=== PATIENT | male | born 1935 | race Two or more races ===

== ENCOUNTER 2024-09-29 13:39 | Inpatient (IN) | payer OTHER ==
[~2024-09-29] VITALS: Ht 170.2 cm; Wt 139.0 kg
--- NOTE | 2024-09-29 14:23 | DVHHP2 ---
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 [facility] 09/29/24 Verified 24 Hours 14:18 Emergency Dysrhythmia [facility] 09/29/24 Verified Protocol 14:18 Rhythm Strips Once [facility] 09/29/24 Verified Every Shift 14:18 Oxygen By Nasal RT 09/29/24 Verified Cannula 14:18 Npo (Nothing By DIET 09/29/24 Verified Mouth) Diet Dinner Tamsulosin PHA 09/29/24 Verified Hydrochloride (Flomax) 18:00 Finasteride Tablet PHA 09/30/24 Verified (Proscar Tablet) 10:00 Complete Blood Count LAB 09/29/24 Verified 14:18 Comprehensive LAB 09/29/24 Verified Metabolic Panel 14:18 PTPTT LAB 09/29/24 Verified 14:18 Urinalysis LAB 09/29/24 Uncollected 14:18 Urine Bacterial RICH 09/29/24 Verified Culture 14:18 Ekg On Admit [facility] 09/29/24 Verified 14:18 Basic Metabolic Panel LAB 09/30/24 Verified 06:00 Complete Blood Count LAB 09/30/24 Verified 06:00 Chest Portable XY 09/29/24 Verified 14:18 Acetaminophen Tablet PHA 09/29/24 Verified (Tylenol Tablet) 14:30 Ondansetron Hcl PHA 09/29/24 Verified (Zofran) 14:30 Date of Service: September 29, 2024 Billing Provider: KAREN KENDALL MD Common Visit Codes: [id number] INP/OBS CARE (HIGH) Secondary Visit Codes: [id number] CARE PLAN 30 MINUTES KAERN KENDALL MD September 29, 2024 14:23
[2024-09-29] MEDS ORDERED: MORPHINE SULFATE INJ 2 MG/ml SYRG IV PRN (14:30)
[2024-09-29] MEDS ORDERED: NITROGLYCERIN 0.4 MG SL TAB SL PRN (14:30)
[2024-09-29] MEDS ORDERED: ONDANSETRON HCL 4 MG/2 ML VIAL IV PRN (14:30)
--- NOTE | 2024-09-29 14:52 | DVHHP ---
ADMIT DATE: 09/29/2024 HISTORY OF PRESENT ILLNESS: The patient is an 88-year-old gentleman who came in with a history of hematuria that began for the last 1 day. The patient has had recent issues with BPH and now has indwelling Bui. The patient also has had issues with constipation along with secondary anal fissure. The patient has been on a bowel regimen and more recently on GoLYTELY. The patient denies at this point any abdominal pain. No history of any nausea or vomiting. No history of fevers. No chest pain or shortness of breath. REVIEW OF SYSTEMS: Review of rest of systems, otherwise currently negative. PAST MEDICAL HISTORY: Significant for hypertension, BPH, and hyperlipidemia. MEDICATIONS: He takes losartan, finasteride, Flomax, and atorvastatin. ALLERGIES: No known drug allergies. SOCIAL HISTORY: Denies smoking or alcohol. Lives at home with his . FAMILY HISTORY: Negative. PHYSICAL EXAMINATION: GENERAL: The patient is awake and alert. VITAL SIGNS: Temperature of 97.7, pulse 67 per minute, blood pressure 169/70. SHEENT: Unremarkable. NECK: There is no JVD. There is trace pedal edema. LUNGS: Equal bilaterally. No added sounds. CARDIOVASCULAR: S1 and S2 are regular. No murmurs. ABDOMEN: Soft. There is no organomegaly. NEUROLOGIC: Nonfocal. MUSCULOSKELETAL: Normal. : There is a Bui catheter in place. ASSESSMENT AND PLAN: * Hematuria for which an UA and urine culture will be obtained. The patient will be seen in Urology consult by Dr. Jimenez. * BPH for which he will continue on finasteride and Flomax. * Hypertension, for which he will be placed on losartan. * Hyperlipidemia. * History of constipation. * Advanced care planning. The patient is a full code. Time spent was 18 minutes. MD REZA Koch/BOB TID: [id number] RECEIPT: [id number]
[2024-09-29 14:55] LABS: Basophils # (auto) 0 10 ^3/uL (0-0.2); Basophils % (auto) 0.4 % (0.0-2.0); Eosinophils # (auto) 0.1 10 ^3/uL (0-0.8); Eosinophils % (auto) 0.5 % (0.0-7.0); Hematocrit 38.4 % (41.0-53.0); Hemoglobin 12.9 g/dL (13.5-17.5); Lymphocytes # (auto) 0.8 10 ^3/uL (0.4-5.4); Lymphocytes % (auto) 7.1 % (10.0-50.0); Mean Corpuscular Hemoglobin 30.1 pg (28.0-32.0); Mean Corpuscular Hgb Conc. 33.6 g/dL (32.0-36.0); Mean Corpuscular Volume 89.6 fL (80.0-100.0); Monocytes # (auto) 0.8 10 ^3/uL (0-1.3); Monocytes % (auto) 7.3 % (0.0-12.0); Neutrophils # (auto) 9.8 10 ^3/uL (1.6-8.6); Neutrophils % (auto) 84.7 % (37.0-80.0); Platelet Count (auto) 292 10^3/uL (140-450); Red Blood Cells 4.29 10^6/uL (4.5-5.90); Red Cell Distribution Width 13.8 % (11.8-14.3); White Blood Cell 11.6 10^3/uL (4.4-10.8)
[2024-09-29 15:02] VITALS: BP 169/72; PULSE 84; RESP 18; TEMP 97.7; O2SAT 96
--- NOTE | 2024-09-29 15:06 | DVHINCON2 ---
Date of service: September 29, 2024 Referring Physician Hospitalist Reason for Consultation Gross hematuria Urinary retention BPH History of Present Illness Patient in AUR x one week. He has failed one voiding trial and remains on Flomax and Proscar. Cystoscopy showed bilobar hyperplasia. Due to constipation issues, Golytely was given to him by GI Medicine. He noted gross hematuria x one day. He is admitted for surgical management. Past Medical History BPH Past Surgical History Cystoscopy Social History Nonsmoker Current Medications Current Medications Medications (Trade) Dose Ordered Sig/Patrick Route PRN Reason Start Time Stop Time Status Last Admin Nitroglycerin (Ntrostat Sublingual) 0.4 mg Q5MINP PRN SL FOR CHEST PAIN 09/29/24 14:30 UNV Morphine Sulfate 2 mg Q30M PRN IV FOR CHEST PAIN 09/29/24 14:30 UNV Tamsulosin HCl (Flomax) 0.4 mg QPM PO 09/29/24 18:00 UNV Finasteride (Proscar Tablet) 5 mg DAILY PO 09/30/24 10:00 UNV Acetaminophen (Tylenol Tablet) 650 mg Q6HP PRN PO MILD PAIN (1-3 PAIN SCALE) 09/29/24 14:30 UNV Ondansetron HCl (Zofran) 4 mg Q6HPRN PRN IV NAUSEA / VOMITING 09/29/24 14:30 UNV Losartan Potassium (Cozaar Tablet) 50 mg DAILY PO 09/30/24 10:00 UNV Review of Systems AUR Constipation- resolved Physical Exam NAD Abd: soft : dumont in place with hematuria noted Labs/Diagnostic Data Labs Test 09/29/24 14:45 Range/Units White Blood Count 11.6 H 4.4-10.8 10^3/uL Red Blood Count 4.29 L 4.5-5.90 10^6/uL Hemoglobin 12.9 L 13.5-17.5 g/dL Hematocrit 38.4 L 41.0-53.0 % Mean Corpuscular Volume 89.6 80.0-100.0 fL Mean Corpuscular Hemoglobin 30.1 28.0-32.0 pg Mean Corpuscular Hemoglobin Concent 33.6 32.0-36.0 g/dL Red Cell Distribution Width 13.8 11.8-14.3 % Platelet Count 292 140-450 10^3/uL Mean Platelet Volume 7.4 6.9-10.8 fL Neutrophils (%) (Auto) 84.7 H 37.0-80.0 % Lymphocytes (%) (Auto) 7.1 L 10.0-50.0 % Monocytes (%) (Auto) 7.3 0.0-12.0 % Eosinophils (%) (Auto) 0.5 0.0-7.0 % Basophils (%) (Auto) 0.4 0.0-2.0 % Neutrophils # (Auto) 9.8 H 1.6-8.6 10 ^3/uL Lymphocytes # (Auto) 0.8 0.4-5.4 10 ^3/uL Monocytes # (Auto) 0.8 0-1.3 10 ^3/uL Eosinophils # (Auto) 0.1 0-0.8 10 ^3/uL Basophils # (Auto) 0 0-0.2 10 ^3/uL Nucleated Red Blood Cells 0.0 % Assessment BPH Urinary retention Gross hematuria Plan/Recommendation Cystoscopy with possible TURP, possible Urolift placement Plan discussed with: Patient, Daughter, Son, Other DONNY GUDINO MD September 29, 2024 15:06
[2024-09-29 15:09] LABS: INR 1.08 (0.9-1.15); Partial Thromboplastin Time 28.8 SEC (24.5-34.5); Prothrombin Time 11.4 sec (9.3-11.8)
[2024-09-29 15:11] LABS: Alanine Aminotransferase 29 U/L (7-40); Albumin 4.2 g/dL (3.2-4.8); Alkaline Phosphatase 73 U/L (46-116); Anion Gap 8 (5-15); Aspartate Aminotransferase 38 U/L (13-40); BUN/Creatinine Ratio 11.7 (10.0-20.0); Blood Urea Nitrogen 9 mg/dL (9-23); Calcium 9.1 mg/dL (8.7-10.4); Carbon Dioxide 28 mmol/L (20-31); Chloride 104 mmol/L (98-107); Glucose 102 mg/dL (74-106); Potassium 3.9 mmol/L (3.5-5.1); Sodium 140 mmol/L (136-145); Total Protein 6.4 g/dL (5.7-8.2)
[2024-09-29 15:12] LABS: Bilirubin, Total 0.6 mg/dL (0.2-1.0)
[2024-09-29] MEDS ORDERED: fentaNYL CITRATE 100 MCG/2 ML VL ONE ×2 (15:36→16:27)
[2024-09-29] MEDS ORDERED: PROPOFOL 10 MG/ML 20 ML IV ONE (15:36)
--- NOTE | 2024-09-29 15:50 | DVH ---
INDICATION: HTN TECHNIQUE: Frontal view of the chest. COMPARISON: None FINDINGS: Findings. The heart and mediastinal contours are grossly unremarkable. There is no evidence of pleur al disease. The lungs are clear. There is atelectasis and fibrosis seen in the left upper lung The bony structures of the chest are intact without fracture. IMPRESSION: 1. No evidence of acute disease.
[2024-09-29 16:12] LABS: Urine Bacteria None Seen /hpf (None Seen)
[2024-09-29 16:17] LABS: Urine Blood 2+ /uL (Negative); Urine Clarity Clear (Clear); Urine Color Colorless (Yellow); Urine Protein, UAD Negative (Negative); Urine Specific Gravity 1.005 (1.001-1.035); Urine Squamous Epithelial Cell FEW /hpf (<5); Urine Urobilinogen Normal (Negative); Urine WBC 62 /HPF (0-3)
[2024-09-29] MEDS ORDERED: ONDANSETRON HCL 4 MG/2 ML VIAL ONE (16:23)
[2024-09-29] MEDS ORDERED: ePHEDrine SULFATE 50 MG/ML AMP ONE (16:25)
[2024-09-29] MEDS: LIDOCAINE 2% JELLY 11ml (GLYDO) ONE (16:25)
[2024-09-29 17:01] VITALS: PULSE 77; RESP 17; O2SAT 96
[2024-09-29] MEDS: ONDANSETRON HCL 4 MG/2 ML VIAL IV ONE (17:15)
[2024-09-29] MEDS: HYDROmorphone HCL 2 MG/ML VL/or syr IV PRN (17:31)
[2024-09-29] MEDS: ACETAMINOPHEN IV 1000 MG/100ML (10MG/ML) IV PRN (17:51)
[2024-09-29] MEDS: CIPROFLOXACIN 400MG/200ML 200 ML IV ONE (18:46)
[2024-09-29] MEDS: OXYBUTYNIN CHL 5 MG TAB PO ONE (18:47)
[2024-09-29 20:00] VITALS: PULSE 75; O2SAT 97
[2024-09-29] MEDS: POLYETHYLENE GLYCOL 17 GM PWDR PO ONE (20:00)
[2024-09-29] MEDS: TAMSULOSIN HYDROCHLORIDE 0.4 MG CAP PO SCH (20:03)
[2024-09-29] MEDS: cefTRIAXone 1GM/50ML D5W 50 ML IV ONE (20:03)
[2024-09-29 21:00] VITALS: BP 112/42; PULSE 55; RESP 18; TEMP 97.4; O2SAT 95
--- NOTE | 2024-09-29 21:02 | DVHNC2 ---
Procedure - OPERATIVE REPORT Pre-op. Diagnosis: BPH with Obstruction Gross hematuria Post-op. 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 He was admitted to [facility] for gross hematuria. Treatment options were discussed including ongoing therapy with pharmaceutical such as alpha blocking agents (Flomax/UroXatral/Rapaflow), or Prostate shrinking agents (proscar/Avodart); In- office prostate therapies (TUMT/Indigo Laser/TUNA); or Outpatient procedures such as Green light laser photovaporization/Enucleation/TURP) as well urolift. Corresponding advantages and disadvantages were also discussed. Questions were addressed. Complication include but nt limited to infection, bleeding, damage to the surrounding structures, ejaculatory dysfunction, erectile dysfunction, need for secondary procedures were discussed. Informed consent was obtained. Details of Procedure: Patient was brought to the operating room. After administration of anesthesia, he was placed in the lithotomy position. The area of genitalia was prepped and draped in standard surgical and sterile fashion. The 20 F access sheath was introduced into the bladder under direct vision. Bladder was emptied and the Urolift device was introduced. Four implants were permanently placed at the 10 a& 2 O'clock positions near the bladder neck and apical tissue to lift the kissing lateral lobes out of the way and to create a channel in the prostatic urethra and the urethral bladder neck opening. The implants were delivered through a needle that comes out of the Urolift delivery device and into the prostate. The 22 F cystoscope was used to access the bladder. Hemorrhagic cystitis were noted and biopsy of posterior wall bladder was performed. Next, a 26F resectoscope was used to access the bladder. High median bar of the prostate/bladder neck was ablated and minimally resected for making the prostatic channel patent. Hemostasis was obtained. Specimen was sent for pathology evaluation. [address] Bui catheter was placed for CBI. Patient tolerated the procedure well. He was awaken and taken to RR in stable condition. All instrument counts were correct at the end of the procedure. Specimens: Posterior wall lesion Bladder neck tissue Complications: None Findings: Hemorrhagic cystitis noted and biopsy taken for verification. Notes: Visit Code: Procedure Codes: 90502 CYSTOURETHRO W/IMPLANT. 74450 CYSTOURETHRO W/ADDL IMPLANT. Units: 3.00. DONNY GUDINO MD September 29, 2024 21:02
[2024-09-29] MEDS: MELATONIN 5 MG TAB PO ONE (23:23)
[2024-09-30] VITALS (7 sets, daily range): BP systolic 103–154; BP diastolic 41–72; PULSE 60–71; RESP 14–18; TEMP 97.4–98.8; O2SAT 70–100
[2024-09-30] MEDS: ACETAMINOPHEN 325 MG TAB PO PRN (06:46)
[2024-09-30 06:48] LABS: Basophils # (auto) 0 10 ^3/uL (0-0.2); Basophils % (auto) 0.2 % (0.0-2.0); Eosinophils # (auto) 0.2 10 ^3/uL (0-0.8); Eosinophils % (auto) 1.5 % (0.0-7.0); Hemoglobin 12.2 g/dL (13.5-17.5); Lymphocytes # (auto) 0.7 10 ^3/uL (0.4-5.4); Lymphocytes % (auto) 6.4 % (10.0-50.0); Mean Corpuscular Hemoglobin 30.3 pg (28.0-32.0); Mean Corpuscular Hgb Conc. 33.8 g/dL (32.0-36.0); Mean Corpuscular Volume 89.6 fL (80.0-100.0); Monocytes # (auto) 0.8 10 ^3/uL (0-1.3); Monocytes % (auto) 6.9 % (0.0-12.0); Neutrophils # (auto) 9.5 10 ^3/uL (1.6-8.6); Nucleated Red Blood Cells % 0.1 %; Platelet Count (auto) 290 10^3/uL (140-450); Red Blood Cells 4.02 10^6/uL (4.5-5.90); Red Cell Distribution Width 13.5 % (11.8-14.3); White Blood Cell 11.2 10^3/uL (4.4-10.8)
[2024-09-30 06:54] LABS: Anion Gap 10 (5-15); Carbon Dioxide 26 mmol/L (20-31); Chloride 102 mmol/L (98-107); Potassium 4.4 mmol/L (3.5-5.1); Sodium 138 mmol/L (136-145)
[2024-09-30 07:01] LABS: Blood Urea Nitrogen 8 mg/dL (9-23); Glucose 137 mg/dL (74-106)
[2024-09-30] MEDS: cefTRIAXone 1GM/50ML D5W 50 ML IV SCH (09:22)
[2024-09-30] MEDS: FINASTERIDE 5 MG TAB PO SCH (09:34)
[2024-09-30] MEDS: LOSARTAN POTASSIUM 50 MG TAB PO SCH (09:41)
[2024-09-30] MEDS: POLYETHYLENE GLYCOL 17 GM PWDR PO SCH (09:41)
--- NOTE | 2024-09-30 09:56 | DVHPN2 ---
Progress Note Date Seen: September 30, 2024 Medical Necessity Reason Pt with a Central, PICC or Fol: No Subjective Patient reports: No new complaints Review of Systems: HEENT:Normal, CVS:Normal, RESPIRATORY:Normal, GI:Normal, :Normal, MSK:Normal, NEURO:Normal Objective vital signs Vital Sign Date Time Temp Pulse Resp B/P (MAP) Pulse Ox O2 Delivery O2 Flow Rate FiO2 09/30/24 09:41 154/55 09/30/24 09:00 98.1 60 14 98 98.1 09/30/24 08:00 Room Air* 0 21 Total Intake and Output 09/29/24 09/29/24 09/30/24 15:00 23:00 07:00 Intake Total 0 ml 100 ml Output Total 300 ml 1300 ml Balance -300 ml -1200 ml medications Current Medications Medications Dose Ordered Sig/Patrick Route Start Time Stop Time Status Last Admin Dose Admin Nitroglycerin 0.4 mg Q5MINP PRN SL 09/29/24 14:30 Morphine Sulfate 2 mg Q30M PRN IV 09/29/24 14:30 Tamsulosin HCl 0.4 mg QPM PO 09/29/24 18:00 09/29/24 20:03 0.4 MG Finasteride 5 mg DAILY PO 09/30/24 10:00 09/30/24 09:34 5 MG Acetaminophen 650 mg Q6HP PRN PO 09/29/24 14:30 09/30/24 06:46 650 MG Ondansetron HCl 4 mg Q6HPRN PRN IV 09/29/24 14:30 Losartan Potassium 50 mg DAILY PO 09/30/24 10:00 09/30/24 09:41 50 MG Ceftriaxone Sodium 50 ml @ 100 mls/hr DAILY@09 IV 09/30/24 09:00 09/30/24 09:22 100 MLS/HR Polyethylene Glycol 17 gm DAILY PO 09/30/24 10:00 09/30/24 09:41 17 GM Examination: GENERAL:Normal, HEENT:Normal, NECK:Normal, LUNGS:Normal, CVS:Normal, ABDOMEN:Normal, MSK:Normal, SKIN:Normal, NEURO:Normal, :Normal laboratory and microbiology Laboratory Tests 09/30/24 05:07 Test 09/30/24 05:07 Range/Units Serum Glucose 137 H 74-106 mg/dL Microbiology Date/Time Source Procedure Growth Status 09/29/24 15:32 Urine - Bui Port Urine Culture - Preliminary Resulted Problem List/Assessment/Plan Problem List/Assessment/Plan * Hematuria with hemorrhagic cystitis with uti: iv rocephin * BPH s/p urolift: he will continue on finasteride and Flomax. * Hypertension, for which he will be placed on losartan. * Hyperlipidemia. * History of constipation. * Advanced care planning. The patient is a full code- 18 mins Plan discussed with: Patient My Orders My Orders Orders - KAREN KENDALL MD Procedure Category Date Status Time Admit ADMIT 09/29/24 Transmitted 14:18 Nitroglycerin PHA 09/29/24 In Process Sublingual (Ntrostat 14:30 Morphine Sulfate PHA 09/29/24 In Process Injection 14:30 Stat Ekg For Chest ADAN 09/29/24 In Process Pain 14:18 Notify Md Of Changes ADAN 09/29/24 In Process From Base 14:18 Impact Hammer Operator For ADAN 09/29/24 In Process 24 Hours 14:18 Emergency Dysrhythmia ADAN 09/29/24 In Process Protocol 14:18 Rhythm Strips Once ADAN 09/29/24 In Process Every Shift 14:18 Oxygen By Nasal RT 09/29/24 Transmitted Cannula 14:18 Tamsulosin PHA 09/29/24 In Process Hydrochloride (Flomax) 18:00 Finasteride Tablet PHA 09/30/24 In Process (Proscar Tablet) 10:00 Urine Bacterial RICH 09/29/24 In Process Culture 14:18 Ekg On Admit ADAN 09/29/24 In Process 14:18 Chest Portable XY 09/29/24 Resulted 14:18 Acetaminophen Tablet PHA 09/29/24 In Process (Tylenol Tablet) 14:30 Ondansetron Hcl PHA 09/29/24 In Process (Zofran) 14:30 Losartan Tablet PHA 09/30/24 In Process (Cozaar Tablet) 10:00 Pharmacy ADAN 09/29/24 In Process Clarification: 22:30 Ceftriaxone 1gm/50ml PHA 09/30/24 In Process D5w (Rocephin) 09:00 * Urology Consult CONS 09/29/24 Transmitted 17:17 Sequential ADAN 09/29/24 In Process Compression Device 17:37 Polyethylene Glycol PHA 09/30/24 In Process 17g Powder (Miralax 10:00 Regular Diet DIET 09/30/24 Transmitted Breakfast Complete Blood Count LAB 10/01/24 Verified 06:00 Date of Service: September 30, 2024 Billing Provider: KAREN KENDALL MD Common Visit Codes: [id number] INP/OBS CARE(HIGH) Secondary Visit Codes: [id number] CARE PLAN 30 MINUTES KAREN KENDALL MD September 30, 2024 09:56
[2024-09-30] MEDS: DOCUSATE SOD 100 MG CAP PO ONE (12:42)
[2024-09-30] MEDS: ERTAPENEM SOD INJ 1 GM in SODIUM CHL 0.9% 50 ML IV ONE (12:43)
[2024-09-30] MEDS: BETHANECHOL CHLORIDE 25 MG TAB PO SCH (14:00)
--- NOTE | 2024-09-30 15:10 | DVHPN2 ---
Progress Note - Dictate Date Seen: September 30, 2024 Medical Necessity Reason Pt with a Central, PICC or Fol: No The following are medically ne: Bui Catheter Medical Necessity Reason Urinary retention BPH Cystitis Subjective Patient was unable to void c/o discomfort/pressure since his catheter removal at 0615. He voided 50 ml and then 150ml. But, PVR was >550ml and 16F Bui catheter was placed with >900 ml clear yellow urine return noted. vital signs Vital Sign Date Time Temp Pulse Resp B/P (MAP) Pulse Ox O2 Delivery O2 Flow Rate FiO2 09/30/24 12:52 98.8 62 18 137/67 (90) 70 98.8 09/30/24 08:00 Room Air* 0 21 Total Intake and Output 09/29/24 09/29/24 09/30/24 15:00 23:00 07:00 Intake Total 0 ml 100 ml Output Total 300 ml 1300 ml Balance -300 ml -1200 ml medications Current Medications Medications Dose Ordered Sig/Patrick Route Start Time Stop Time Status Last Admin Dose Admin Nitroglycerin 0.4 mg Q5MINP PRN SL 09/29/24 14:30 Morphine Sulfate 2 mg Q30M PRN IV 09/29/24 14:30 Tamsulosin HCl 0.4 mg QPM PO 09/29/24 18:00 09/29/24 20:03 0.4 MG Finasteride 5 mg DAILY PO 09/30/24 10:00 09/30/24 09:34 5 MG Acetaminophen 650 mg Q6HP PRN PO 09/29/24 14:30 09/30/24 06:46 650 MG Ondansetron HCl 4 mg Q6HPRN PRN IV 09/29/24 14:30 Losartan Potassium 50 mg DAILY PO 09/30/24 10:00 09/30/24 09:41 50 MG Polyethylene Glycol 17 gm DAILY PO 09/30/24 10:00 09/30/24 09:41 17 GM Docusate Sodium 100 mg BID PO 09/30/24 22:00 Temazepam 15 mg HSPRN PRN PO 09/30/24 10:30 Ertapenem 1 gm/ Sodium Chloride 50 ml @ 100 mls/hr DAILY IV 10/01/24 10:00 Bethanechol Chloride 50 mg Q8HR PO 09/30/24 14:[address] Urine clear PATIENT: JAKE HARDIN ACCT: [id number] LOC: [place] U: [id number] AGE/SX: 88/M ROOM: 0205 RE09/29/[address]: KAYKAY VENTURA MD : 1935 BED: A DIS: STATUS: ADM IN TLOC: - SPEC #: [id number] LEONA: 09/29/24-1531 STATUS: RES REQ #: [id number] RECD: 09/29/[address]: KAREN KENDALL MD SOURCE: URINE,FOL ENTR: 09/29/24-[address]: MISHA ROBLES SPDESC: KAYKAY VENTURA MD ORDERED: [facility] [place] COMMENTS: NO URINE SENT TO [id number] - Procedure Result - Urine Bacterial Culture Preliminary Report >100,000 CFU/mL Gram Negative Rods Identification and Susceptibilty test to follow. laboratory and microbiology Laboratory Tests 5/14/25 05:07 Test 09/30/24 05:07 Range/Units Serum Glucose 137 H 74-106 mg/dL Problem List UTI, sensitivities to follow Urinary retention Assessment/Plan Will implement Bladder training (clamp x 2 hrs then drain x one hr and repeat). Started urecholine 50 mg po TID Continue with ABX. Plan discussed with: Patient, Daughter, Other DONNY GUDINO MD September 30, 2024 15:10
[2024-09-30] MEDS: TEMAZEPAM 15 MG CAP PO PRN (21:20)
[2024-09-30] MEDS: DOCUSATE SOD 100 MG CAP PO SCH (22:00)
[2024-10-01 05:00] VITALS: BP 150/66; PULSE 62; RESP 18; TEMP 97.5; O2SAT 97
[2024-10-01 07:21] LABS: Basophils # (auto) 0 10 ^3/uL (0-0.2); Basophils % (auto) 0.4 % (0.0-2.0); Eosinophils # (auto) 0.2 10 ^3/uL (0-0.8); Eosinophils % (auto) 2.5 % (0.0-7.0); Hematocrit 35.9 % (41.0-53.0); Hemoglobin 12.1 g/dL (13.5-17.5); Lymphocytes # (auto) 0.9 10 ^3/uL (0.4-5.4); Lymphocytes % (auto) 11.8 % (10.0-50.0); Mean Corpuscular Hemoglobin 30.3 pg (28.0-32.0); Mean Corpuscular Hgb Conc. 33.7 g/dL (32.0-36.0); Mean Corpuscular Volume 90.1 fL (80.0-100.0); Monocytes # (auto) 0.8 10 ^3/uL (0-1.3); Monocytes % (auto) 9.9 % (0.0-12.0); Neutrophils % (auto) 75.4 % (37.0-80.0); Platelet Count (auto) 296 10^3/uL (140-450); Red Blood Cells 3.98 10^6/uL (4.5-5.90); Red Cell Distribution Width 14.1 % (11.8-14.3); White Blood Cell 7.9 10^3/uL (4.4-10.8)
--- NOTE | 2024-10-01 08:12 | DVHPN2 ---
Progress Note - Dictate Date Seen: October 01, 2024 Has the PT tested + for MRSA If YES, has PT been informed?: No Medical Necessity Reason Pt with a Central, PICC or Fol: Yes The following are medically ne: Dumont Catheter Reason for dumont catheter: Bladder Retention/Obstruc Medical Necessity Reason POD#2 s/p Urolift/bladder biopsy/UTI Subjective Patient has been undergoing bladder training yesterday. Slept well with sleeping pill vital signs Vital Sign Date Time Temp Pulse Resp B/P (MAP) Pulse Ox O2 Delivery O2 Flow Rate FiO2 10/01/24 05:00 97.5 62 18 150/66 (94) 97 97.5 09/30/24 20:00 Room Air* 0 21 Total Intake and Output 09/30/24 09/30/24 10/01/24 15:00 23:00 07:00 Intake Total 100 ml 840 ml Output Total 2100 ml 1100 ml Balance 100 ml -1260 ml -1100 ml medications Current Medications Medications Dose Ordered Sig/Patrick Route Start Time Stop Time Status Last Admin Dose Admin Nitroglycerin 0.4 mg Q5MINP PRN SL 09/29/24 14:30 Morphine Sulfate 2 mg Q30M PRN IV 09/29/24 14:30 Tamsulosin HCl 0.4 mg QPM PO 09/29/24 18:00 09/30/24 18:09 0.4 MG Finasteride 5 mg DAILY PO 09/30/24 10:00 09/30/24 09:34 5 MG Acetaminophen 650 mg Q6HP PRN PO 09/29/24 14:30 09/30/24 06:46 650 MG Ondansetron HCl 4 mg Q6HPRN PRN IV 09/29/24 14:30 Losartan Potassium 50 mg DAILY PO 09/30/24 10:00 09/30/24 09:41 50 MG Polyethylene Glycol 17 gm DAILY PO 09/30/24 10:00 09/30/24 09:41 17 GM Docusate Sodium 100 mg BID PO 09/30/24 22:00 Temazepam 15 mg HSPRN PRN PO 09/30/24 10:30 09/30/24 21:20 15 MG Ertapenem 1 gm/ Sodium Chloride 50 ml @ 100 mls/hr DAILY IV 10/01/24 10:00 Bethanechol Chloride 50 mg Q8HR PO 09/30/24 14:00 10/01/24 05:37 50 MG objective Dumont in place Urine clear PATIENT: JAKE HARDIN ACCT: [id number] LOC: [place] U: [id number] AGE/SX: 88/M ROOM: 0205 RE09/29/[address]: KAYKAY VENTURA MD : 1935 BED: A DIS: STATUS: ADM IN TLOC: - SPEC #: [id number] LEONA: 09/29/24 STATUS: RES REQ #: [id number] RECD: 09/29/[address]: KAREN KENDALL MD SOURCE: URINE,FOL ENTR: 09/29/24-[address]: MISHA ROBLES SPDESC: KAYKAY VENTURA MD ORDERED: [facility] [place] COMMENTS: NO URINE SENT TO [id number] - Procedure Result - Urine Bacterial Culture Preliminary Report >100,000 CFU/mL Gram Negative Rods Identification and Susceptibilty test to follow. laboratory and microbiology Laboratory Tests 10/01/24 05:17 09/30/24 05:07 Test 09/30/24 05:07 Range/Units Serum Glucose 137 H 74-106 mg/dL Problem List UTI, sensitivities to follow Urinary retention Assessment/Plan Will do voiding trrial this morning Started urecholine 50 mg po TID Continue with ABX. Plan discussed with: Patient, Other DONNY GUDINO MD October 01, 2024 08:12
[2024-10-01] MEDS: SODIUM CHLORIDE 0.9% 500 ML IV ONE (08:13)
[2024-10-01 08:15] VITALS: BP 162/63; PULSE 60; RESP 18; TEMP 98; O2SAT 98
[2024-10-01 08:21] VITALS: PULSE 60; RESP 18; O2SAT 98
[2024-10-01] MEDS: ERTAPENEM SOD INJ 1 GM in SODIUM CHL 0.9% 50 ML IV SCH (10:00)
--- NOTE | 2024-10-01 10:12 | DVHPN2 ---
Progress Note Date Seen: October 01, 2024 Has the PT tested + for MRSA If YES, has PT been informed?: No Medical Necessity Reason Pt with a Central, PICC or Fol: No Subjective Patient reports: No new complaints Review of Systems: HEENT:Normal, CVS:Normal, RESPIRATORY:Normal, GI:Normal, :Normal, MSK:Normal, NEURO:Normal Objective vital signs Vital Sign Date Time Temp Pulse Resp B/P (MAP) Pulse Ox O2 Delivery O2 Flow Rate FiO2 10/01/24 10:01 162/63 10/01/24 08:21 60 18 98 Room Air* 0 21 10/01/24 08:15 98.0 98.0 Total Intake and Output 09/30/24 09/30/24 10/01/24 15:00 23:00 07:00 Intake Total 100 ml 840 ml Output Total 2100 ml 1100 ml Balance 100 ml -1260 ml -1100 ml medications Current Medications Medications Dose Ordered Sig/Patrick Route Start Time Stop Time Status Last Admin Dose Admin Nitroglycerin 0.4 mg Q5MINP PRN SL 09/29/24 14:30 Morphine Sulfate 2 mg Q30M PRN IV 09/29/24 14:30 Tamsulosin HCl 0.4 mg QPM PO 09/29/24 18:00 09/30/24 18:09 0.4 MG Finasteride 5 mg DAILY PO 09/30/24 10:00 10/01/24 10:01 5 MG Acetaminophen 650 mg Q6HP PRN PO 09/29/24 14:30 09/30/24 06:46 650 MG Ondansetron HCl 4 mg Q6HPRN PRN IV 09/29/24 14:30 Losartan Potassium 50 mg DAILY PO 09/30/24 10:00 10/01/24 10:01 50 MG Polyethylene Glycol 17 gm DAILY PO 09/30/24 10:00 09/30/24 09:41 17 GM Docusate Sodium 100 mg BID PO 09/30/24 22:00 Temazepam 15 mg HSPRN PRN PO 09/30/24 10:30 09/30/24 21:20 15 MG Ertapenem 1 gm/ Sodium Chloride 50 ml @ 100 mls/hr DAILY IV 10/01/24 10:00 10/01/24 10:00 100 MLS/HR Bethanechol Chloride 50 mg Q8HR PO 09/30/24 14:00 10/01/24 05:37 50 MG Examination: GENERAL:Normal, HEENT:Normal, NECK:Normal, LUNGS:Normal, CVS:Normal, ABDOMEN:Normal, MSK:Normal, SKIN:Normal, NEURO:Normal, :Normal laboratory and microbiology Laboratory Tests 10/01/24 05:17 09/30/24 05:07 Test 09/30/24 05:07 Range/Units Serum Glucose 137 H 74-106 mg/dL Microbiology Date/Time Source Procedure Growth Status 09/29/24 15:32 Urine - Dumont Port Urine Culture - Preliminary Resulted Problem List/Assessment/Plan Problem List/Assessment/Plan * Hematuria with hemorrhagic cystitis with uti: iv rocephin * BPH s/p urolift: he will continue on finasteride and Flomax, dumont removed. * Hypertension, for which he will be placed on losartan. * Hyperlipidemia. * History of constipation. * Advanced care planning. The patient is a full code- 18 mins Plan discussed with: Patient My Orders My Orders Orders - KAREN KENDALL MD Procedure Category Date Status Time Docusate Sodium PHA 09/30/24 In Process Capsule (Colace 22:00 Temazepam (Restoril) PHA 09/30/24 In Process 10:30 Ertapenem Sod Inj PHA 10/01/24 In Process (Invanz) 10:00 Nutritional PHA 10/01/24 Verified Supplements (Ensure 18:00 Date of Service: October 01, 2024 Billing Provider: KAREN KENDALL MD Common Visit Codes: [id number] INP/OBS CARE(HIGH) KAREN KENDALL MD October 01, 2024 10:12
[2024-10-01 12:09] VITALS: BP 159/68; PULSE 57; RESP 18; TEMP 97.8; O2SAT 98
--- NOTE | 2024-10-01 15:15 | MEDREC ---
[facility] ASP Intervention Section I [facility] ASP Intervention: Deescalate AB based on CS (PLEASE CONSIDER DEESCALATING ANTIBIOTIC BASED ON CULTURE RESULTS IF CLINICALLY RELEVANT) LUIS WALSH PHARMACIST October 01, 2024 15:15
[2024-10-01 17:00] VITALS: BP 156/57; PULSE 58; RESP 20; TEMP 97.8; O2SAT 98
[2024-10-01] MEDS: Ensure HIGH Protein Chocolate 8oz Bottle PO SCH (18:10)
[2024-10-01] MEDS: hydrALAZINE HCL 20 MG/ML VL IV PRN (20:39)
[2024-10-01 21:00] VITALS: BP 195/75; PULSE 64; RESP 19; TEMP 97.9; O2SAT 96
[2024-10-01] MEDS: SULFAMETHOX W/TRIMETH(800/160MG) DS TAB PO SCH (21:09)
--- NOTE | 2024-10-02 07:37 | DVHPN2 ---
Progress Note - Dictate Date Seen: October 02, 2024 Has the PT tested + for MRSA If YES, has PT been informed?: No Medical Necessity Reason Pt with a Central, PICC or Fol: Yes The following are medically ne: Bui Catheter Medical Necessity Reason POD#3 s/p Urolift/biopsy/fulguration UTI being treated with appropriate antibiotics Subjective Patient voided little bit with urecholine therapy. Bui had to be replaced due to PVR >550 ml. Tolerating Bui well. vital signs Vital Sign Date Time Temp Pulse Resp B/P (MAP) Pulse Ox O2 Delivery O2 Flow Rate FiO2 10/01/24 21:00 97.9 64 19 195/75 (115) 96 97.9 10/01/24 20:00 Room Air* 0 21 Total Intake and Output 10/01/24 10/01/24 10/02/24 15:00 23:00 07:00 Intake Total 50 ml 620 ml 240 ml Output Total 700 ml 1000 ml 800 ml Balance -650 ml -380 ml -560 ml medications Current Medications Medications Dose Ordered Sig/Patrick Route Start Time Stop Time Status Last Admin Dose Admin Nitroglycerin 0.4 mg Q5MINP PRN SL 09/29/24 14:30 Morphine Sulfate 2 mg Q30M PRN IV 09/29/24 14:30 Tamsulosin HCl 0.4 mg QPM PO 09/29/24 18:00 10/01/24 18:10 0.4 MG Finasteride 5 mg DAILY PO 09/30/24 10:00 10/01/24 10:01 5 MG Acetaminophen 650 mg Q6HP PRN PO 09/29/24 14:30 09/30/24 06:46 650 MG Ondansetron HCl 4 mg Q6HPRN PRN IV 09/29/24 14:30 Losartan Potassium 50 mg DAILY PO 09/30/24 10:00 10/01/24 10:01 50 MG Polyethylene Glycol 17 gm DAILY PO 09/30/24 10:00 10/01/24 10:15 17 GM Docusate Sodium 100 mg BID PO 09/30/24 22:00 Temazepam 15 mg HSPRN PRN PO 09/30/24 10:30 10/01/24 21:09 15 MG Ertapenem 1 gm/ Sodium Chloride 50 ml @ 100 mls/hr DAILY IV 10/01/24 10:00 10/01/24 10:00 100 MLS/HR Bethanechol Chloride 50 mg Q8HR PO 09/30/24 14:00 10/02/24 05:20 50 MG Enteral Nutritional Formula 240 ml BIDWM PO 10/01/24 18:00 10/01/24 18:10 240 ML Trimethoprim/ Sulfamethoxazole 1 tab Q12HR PO 10/01/24 22:00 10/01/24 21:09 1 TAB Hydralazine HCl 10 mg Q6HP PRN IV 10/01/24 20:30 10/01/24 20:39 10 MG objective Bui in place with clear urine [facility] [address] [id number] Pinky Kendall M.D., Laboratory Supervisor Laundry - PATIENT: JAKE HARDIN ACCT: [id number] LOC: [place] U: [id number] AGE/SX: 88/M ROOM: [facility] RE09/29/[address]: KAREN KENDALL MD : 1935 BED: A DIS: STATUS: ADM IN TLOC: - SPEC #: [id number] [place]: 09/29/24-1531 STATUS: COMP REQ #: [id number] RECD: 09/29/24-[address]: KAREN KENDALL MD SOURCE: URINE,FOL ENTR: 09/29/24-[address]: MISHA ROBLES [facility] HEART: KAYKAY VENTURA MD ORDERED: [facility] [place] COMMENTS: NO URINE SENT TO [id number] - Procedure Result - Urine Bacterial Culture Final Organism 1 Morganella morganii QUANTITATION >100,000 CFU/ML M MORGANII [facility].I.[facility]. RX --------- --- Ampicillin >16 R Ampicillin/Sulbactam >16/8 R Aztreonam <=4 S Cefepime <=2 S Ceftriaxone <=1 S Ciprofloxacin 1 R Ertapenem <=0.5 S Gentamicin <=2 S Levofloxacin 1 I Meropenem <=1 S Nitrofurantoin 64 R Trimethoprim/Sulfamethoxazole <=2/38 S Piperacillin/Tazobactam <=8 S *RICH value in ug/ml laboratory and microbiology Laboratory Tests 10/01/24 05:17 09/30/24 05:07 Test 09/30/24 05:07 Range/Units Serum Glucose 137 H 74-106 mg/dL [facility] [address] [id number] Pinky Kendall M.D., Laboratory Supervisor Laundry - PATIENT: JAKE HARDIN ACCT: [id number] LOC: [place] U: [id number] AGE/SX: 88/M ROOM: 0205 RE09/29/[address]: KAREN KENDALL MD : 1935 BED: A DIS: STATUS: ADM IN TLOC: - SPEC #: [id number] [place]: 09/29/24 STATUS: COMP REQ #: [id number] RECD: 09/29/[address]: KAREN KENDALL MD SOURCE: URINE,FOL ENTR: 09/29/24-[address]: MISHA ROBLES SPDESC: KAYKAY VENTURA MD ORDERED: UR COMMENTS: NO URINE SENT TO [id number] - Procedure Result - Urine Bacterial Culture Final Organism 1 Morganella morganii QUANTITATION >100,000 CFU/ML M MORGANII [facility].I.C. RX --------- --- Ampicillin >16 R Ampicillin/Sulbactam >16/8 R Aztreonam <=4 S Cefepime <=2 S Ceftriaxone <=1 S Ciprofloxacin 1 R Ertapenem <=0.5 S Gentamicin <=2 S Levofloxacin 1 I Meropenem <=1 S Nitrofurantoin 64 R Trimethoprim/Sulfamethoxazole <=2/38 S Piperacillin/Tazobactam <=8 S *RICH value in ug/ml Problem List UTI Urinary retention BPH, s/p Urolift Assessment/Plan Bui to gravity x one week (leg bag for discharge) Voiding trial vs. bladder training next week Continue urecholine 50 mg po TID Continue with ABX. Plan discussed with: Patient DONNY GUDINO MD October 02, 2024 07:36
[2024-10-02 08:00] VITALS: PULSE 64; RESP 18; O2SAT 100
[2024-10-02 09:00] VITALS: BP 166/62; PULSE 64; RESP 18; TEMP 97.4; O2SAT 100
[2024-10-02 13:00] VITALS: BP 137/62; PULSE 65; RESP 18; TEMP 97.3; O2SAT 100
[2024-10-02] MEDS ORDERED: BET25T PO (13:16)
--- NOTE | 2024-10-02 13:19 | DVHDS2 ---
Discharge Summary Date of Admission September 29, 2024 at 13:39 Date of Discharge: October 02, 2024 Admitting Diagnosis Hemorrhagic cystitis Labs/Diagnostic Data: Laboratory Results Test 10/01/24 05:17 09/30/24 05:07 09/29/24 15:32 09/29/24 14:45 White Blood Count 7.9 10^3/uL (4.4-10.8) Red Blood Count 3.98 10^6/uL (4.5-5.90) Hemoglobin 12.1 g/dL (13.5-17.5) Hematocrit 35.9 % (41.0-53.0) Mean Corpuscular Volume 90.1 fL (80.0-100.0) Mean Corpuscular Hemoglobin 30.3 pg (28.0-32.0) Mean Corpuscular Hemoglobin Concent 33.7 g/dL (32.0-36.0) Red Cell Distribution Width 14.1 % (11.8-14.3) Platelet Count 296 10^3/uL (140-450) Mean Platelet Volume 8.3 fL (6.9-10.8) Neutrophils (%) (Auto) 75.4 % (37.0-80.0) Lymphocytes (%) (Auto) 11.8 % (10.0-50.0) Monocytes (%) (Auto) 9.9 % (0.0-12.0) Eosinophils (%) (Auto) 2.5 % (0.0-7.0) Basophils (%) (Auto) 0.4 % (0.0-2.0) Neutrophils # (Auto) 6.0 10 ^3/uL (1.6-8.6) Lymphocytes # (Auto) 0.9 10 ^3/uL (0.4-5.4) Monocytes # (Auto) 0.8 10 ^3/uL (0-1.3) Eosinophils # (Auto) 0.2 10 ^3/uL (0-0.8) Basophils # (Auto) 0 10 ^3/uL (0-0.2) Nucleated Red Blood Cells 0.0 % Sodium Level 138 mmol/L (136-145) Potassium Level 4.4 mmol/L (3.5-5.1) Chloride Level 102 mmol/L (98-107) Carbon Dioxide Level 26 mmol/L (20-31) Anion Gap 10 (5-15) Blood Urea Nitrogen 8 mg/dL (9-23) Creatinine 0.80 mg/dL (0.700-1.30) Glomerular Filtration Rate Calc 86 mL/min (>90) BUN/Creatinine Ratio 10.0 (10.0-20.0) Serum Glucose 137 mg/dL (74-106) Calcium Level 9.0 mg/dL (8.7-10.4) Urine Color Colorless (Yellow) Urine Clarity Clear (Clear) Urine pH 7.0 (5.0-9.0) Urine Specific [place] 1.005 (1.001-1.035) Urine Protein Negative (Negative) Urine Ketones Negative (Negative) Urine Blood 2+ /uL (Negative) Urine Nitrite Negative (Negative) Urine Bilirubin Negative (Negative) Urine Urobilinogen Normal mg/dL (Negative) Urine Leukocyte Esterase 3+ /uL (Negative) Urine RBC 7 /hpf (0 - 3) Urine Microscopic WBC 62 /HPF (0-3) Urine Squamous Epithelial Cells Few /hpf (<5) Urine Bacteria None seen /hpf (None Seen) Urine Glucose Normal mg/dL (Normal) Prothrombin Time 11.4 sec (9.3-11.8) Prothrombin Time INR 1.08 (0.9-1.15) Activated Partial Thromboplast Time 28.8 SEC (24.5-34.5) Total Bilirubin 0.6 mg/dL (0.2-1.0) Aspartate Amino Transferase (AST) 38 U/L (13-40) Alanine Aminotransferase (ALT) 29 U/L (7-40) Alkaline Phosphatase 73 U/L (46-116) Total Protein 6.4 g/dL (5.7-8.2) Albumin 4.2 g/dL (3.2-4.8) Other Laboratory Tests 10/01/24 05:17 09/30/24 05:07 Brief Hx & Hospital Course: Patient in Acute Urinary Retention x one week. He has failed one voiding trial and remains on Flomax and Proscar. Cystoscopy showed bilobar hyperplasia. Due to constipation issues, Golytely was given to him by GI Medicine. He noted gross hematuria x one day. He is admitted for surgical management. Patient underwent Urolift - Prostate Implant. Post-op patient was found to have Anthony Andersoni. Will be discharged home with Invanz for [address] Jimenez on Saturday. Operations or Procedures OPERATIVE REPORT Pre-op. Diagnosis: BPH with Obstruction Gross hematuria Post-op. 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 He was admitted to [facility] for gross hematuria. Treatment options were discussed including ongoing therapy with pharmaceutical such as alpha blocking agents (Flomax/UroXatral/Rapaflow), or Prostate shrinking agents (proscar/Avodart); In- office prostate therapies (TUMT/Indigo Laser/TUNA); or Outpatient procedures such as Green light laser photovaporization/Enucleation/TURP) as well urolift. Corresponding advantages and disadvantages were also discussed. Questions were addressed. Complication include but nt limited to infection, bleeding, damage to the surrounding structures, ejaculatory dysfunction, erectile dysfunction, need for secondary procedures were discussed. Informed consent was obtained. Details of Procedure: Patient was brought to the operating room. After administration of anesthesia, he was placed in the lithotomy position. The area of genitalia was prepped and draped in standard surgical and sterile fashion. The 20 F access sheath was introduced into the bladder under direct vision. Bladder was emptied and the Urolift device was introduced. Four implants were permanently placed at the 10 a& 2 O'clock positions near the bladder neck and apical tissue to lift the kissing lateral lobes out of the way and to create a channel in the prostatic urethra and the urethral bladder neck opening. The implants were delivered through a needle that comes out of the Urolift delivery device and into the prostate. The 22 F cystoscope was used to access the bladder. Hemorrhagic cystitis were noted and biopsy of posterior wall bladder was performed. Next, a 26F resectoscope was used to access the bladder. High median bar of the prostate/bladder neck was ablated and minimally resected for making the prostatic channel patent. Hemostasis was obtained. Specimen was sent for pathology evaluation. [address] Dumont catheter was placed for CBI. Patient tolerated the procedure well. He was awaken and taken to RR in stable condition. All instrument counts were correct at the end of the procedure. Specimens: Posterior wall lesion Bladder neck tissue Complications: None Findings: Hemorrhagic cystitis noted and biopsy taken for verification. Notes: Visit Code: Procedure Codes: 59210 CYSTOURETHRO W/IMPLANT. 19980 CYSTOURETHRO W/ADDL IMPLANT. Units: 3.00. Condition at Discharge: Poor Final Diagnosis/Problems List * Complicated UTI Hematuria with hemorrhagic cystitis with uti: iv rocephin * BPH s/p urolift: he will continue on finasteride and Flomax, dumont removed. * Hypertension, for which he will be placed on losartan. * Hyperlipidemia. * History of constipation. * Advanced care planning. The patient is a full code- 18 mins Discharge Disposition: Home with Health Services Discharge Instruct/Medications Diet: Regular Activity: Light activity Follow Up/Referral: Dr. Jimenez on Saturday Medications: Invanz Discharge Statement: "Patient was advised to return to the ER or call 911 if any headaches, dizziness, shortness of breath, chest pain, abdominal pain, bleeding, fevers, or worsening of medical condition. Patient was counseled about treatment plan, medications, possible side effects, patientverbalized understanding. All questions were answered to the best of my ability. This discharge took greater then 30 minutes in planning, reviewing documentation, counseling the patient, and discussing with other team members." ASSESSMENT ASSESSMENT Assessment Date of Service: October 02, 2024 Billing Provider: KAYKAY VENTURA MD Common Visit Codes: 31715-VIN/OBS DISCH DAY >30min KAYKAY VENTURA MD October 02, 2024 13:18
--- NOTE | 2024-10-06 09:02 | ECG ---
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
== END 2024-10-02 17:25 | disposition home health service (06) | DRG 713 ==
LOC: WEST WING 13:39 → CENTRAL 19:22
PROVIDERS: ADMIT Internal Medicine; ATTEND Internal Medicine
PROC: 0V508ZZ Destruction of Prostate, Via Natural or Artificial Opening Endoscopic (ICD-10-PCS; 2024-09-29)
PROC: 0TBC8ZX Excision of Bladder Neck, Via Natural or Artificial Opening Endoscopic, Diagnostic (ICD-10-PCS; 2024-09-29)
PROC: 0T7D8DZ Dilation of Urethra with Intraluminal Device, Via Natural or Artificial Opening Endoscopic (ICD-10-PCS; 2024-09-29)
PROC: 05HC33Z Insertion of Infusion Device into Left Basilic Vein, Percutaneous Approach (ICD-10-PCS; principal; 2024-10-01)
PROC: B54NZZA Ultrasonography of Left Upper Extremity Veins, Guidance (ICD-10-PCS; 2024-10-01)
DX: N40.1 Benign prostatic hyperplasia with lower urinary tract symptoms (principal); N13.8 Other obstructive and reflux uropathy; I10 Essential (primary) hypertension; E78.5 Hyperlipidemia, unspecified; K59.00 Constipation, unspecified; N30.91 Cystitis, unspecified with hematuria
CPT/HCPCS: 36415; 71045; 80048; 80053; 81001; 85025; 85610; 85730; 87086; 87088; 87186; 93005; G0378; J0131; J1335; J2405; J2704